=== PATIENT | male | born 1955 | race Caucasian/White ===

== ENCOUNTER → 2018-10-26 | Outpatient (CLI) | payer OTHER ==
--- NOTE | 2018-10-28 17:27 | 24HR ---
[place] [address] HOLTER MONITOR REPORT Name: JACI VO Room: [facility]#: [id number] Admission: 10/26/18 Attend Phys: Braxton Cao, Discharge: Date of : 55 Date of Service: 10/28/18 1316 Report #: [id number] THIS REPORT FOR: //name// [facility] Test Date: 2018-10-28 Test Time: 13:16:34 Pat Name: JACI VO Department: Room: Gender: Provisioning Specialist: : [id number] Requested By: Braxton Cao Order Number: [id number] [place] MD: Anupam Byrd Interpretive Statements 48 hour Holter monitor The basic underlying rhythm is normal sinus. The mean heart rate was 60 bpm. The minimum heart rate was 41 bpm at 2:32 AM. The maximum heart rate was 105 bpm at 9:01 AM. There are occasional unifocal premature ventricular contractions noted. There were no episodes of significant nonsustained or sustained ventricular arrhythmia. There are occasional premature atrial contractions. There were no significant episodes of nonsustained or sustained supraventricular arrhythmia. There were no significant pauses and rhythm. There is no evidence of underlying atrial for ablation or flutter. The patient exhibited bradycardia defined as heart rate less than 50 bpm 17% of the monitored time. The patient exhibited tachycardia to find his heart rate greater than 100 beats per less than 1% of the monitored time. They'll probably Electronically Signed On 10-28-2018 17:27:27 CDT by Anupam Byrd [email or web address] <ELECTRONICALLY SIGNED> By: Anupam Byrd MD, [facility] 10/28/18 1727 1316 1316 Anupam Byrd MD, [facility] /EPI
== END ==
LOC: M.CRD 10:30
DX: R00.2 Palpitations (principal); Z88.2 Allergy status to sulfonamides